=== PATIENT | female | born 1990 | race African-American/Black ===

== ENCOUNTER 2016-08-31 21:05 | Inpatient (IN) | payer OTHER ==
[~2016-08-31] VITALS: Ht 165.1 cm; Wt 65.3 kg
[2016-08-31 21:54] LABS: BASO % 0 % (0-3); EOS % 1 % (0-3); HEMATOCRIT 44.3 % (36.0-47.0); HEMOGLOBIN 14.6 g/dL (12.0-15.5); LYMPH # 2.7 x10^3/uL (1.0-4.8); LYMPH % 32 % (24-48); MEAN CORPUSCULAR HEMOGLOBIN 31 pg (25-35); MEAN CORPUSCULAR HGB CONC 33 g/dL (31-37); MEAN CORPUSCULAR VOLUME 93 fL (79-100); MONO % 8 % (0-9); NEUT % 59 % (31-73); PLATELET COUNT 171 x10^3/uL (140-400); RED BLOOD COUNT 4.77 x10^6/uL (3.50-5.40); RED CELL DISTRIBUTION WIDTH 14.1 % (11.5-14.5); WHITE BLOOD COUNT 8.6 x10^3/uL (4.0-11.0)
[2016-08-31 21:56] LABS: BILIRUBIN,URINE NEGATIVE (NEG); GLUCOSE,URINE NEGATIVE (NEG); NITRITE,URINE POSITIVE (NEG); PROTEIN,URINE NEGATIVE (NEG-TRACE)
[2016-08-31] MEDS ORDERED: FAMOTIDINE 20 MG/2 ML VIAL IVP ONE (22:00)
[2016-08-31] MEDS ORDERED: ONDANSETRON PF 4 MG/2 ML VIAL. IV ONE (22:00)
[2016-08-31] MEDS ORDERED: IV NORMAL SALINE 1000ML BAG 1,000 ML IV SCH (22:00)
[2016-08-31] MEDS ORDERED: MORPHINE SULFATE 2 MG/ML DISP.SYRIN. IV ONE (22:00)
[2016-08-31 22:02] LABS: BARBITURATES NEG (NEG); BENZODIAZEPINES NEG (NEG); CANNABINOIDS POS (NEG); COCAINE NEG (NEG); ETHANOL, URINE NEG (NEG); METHADONE NEG (NEG); OPIATES NEG (NEG); PHENCYCLIDINE NEG (NEG)
[2016-08-31 22:04] LABS: CALCIUM 8.9 mg/dL (8.5-10.1); CREATININE 0.9 mg/dL (0.6-1.0); GFR 90.2; POTASSIUM 3.6 mmol/L (3.5-5.1)
[2016-08-31 22:06] LABS: BACTERIA,URINE MANY /HPF (0-FEW); SQUAMOUS EPITHELIAL CELL,UR FEW /LPF; WBC,URINE 20-40 /HPF (0-4)
[2016-08-31 22:10] LABS: ALBUMIN 3.8 g/dL (3.4-5.0); ALBUMIN/GLOBULIN RATIO 0.9 (1.0-1.7); TOTAL BILIRUBIN 0.4 mg/dL (0.2-1.0); TOTAL PROTEIN 7.9 g/dL (6.4-8.2)
[2016-08-31 22:24] LABS: PLT ESTIMATE ADEQUATE (ADEQUATE)
--- NOTE | 2016-08-31 22:55 | PHYS DOC ---
Past Medical History Past Medical History: No Pertinent History Past Surgical History: No Surgical History Alcohol Use: Rarely Drug Use: Marijuana Adult General Chief Complaint Chief Complaint: ABDOMINAL PAIN HPI HPI Patient is a 26 year old female who presents with abdominal pain. Patient reports for the past 2 days she has had pain all over her abdomen that radiates to her back. This pain is worse on the left side. No clear inciting event. Patient reports else when she holds a pillow against her abdomen. Pain is accompanied by nausea and vomiting as well as loose stools. She has drank some orange juice as well as 7-Up with no improvement. No recent alcohol use. Review of Systems Review of Systems Constitutional: Denies fever or chills Eyes: Denies change in visual acuity or eye pain HENT: Denies nasal congestion or sore throat Respiratory: Denies cough or shortness of breath Cardiovascular: Denies chest pain GI: General abdominal pain, nausea, vomiting, diarrhea. Denies bloody stools or emesis : Denies dysuria or hematuria Musculoskeletal: Denies back pain or joint pain Integument: Denies rash or skin lesions Neurologic: Denies headache, focal weakness or sensory changes Current Medications Current Medications Current Medications Medications (Trade) Dose Ordered Sig/Ray Start Time Stop Time Status Last Admin Dose Admin Famotidine (Pepcid) 20 mg 1X ONCE 08/31/16 22:00 08/31/16 22:01 DC 08/31/16 21:58 20 MG Morphine Sulfate 2 mg 1X ONCE 08/31/16 22:00 08/31/16 22:01 DC 08/31/16 21:58 2 MG Ondansetron HCl (Zofran) 4 mg 1X ONCE 08/31/16 22:00 08/31/16 22:01 DC 08/31/16 21:58 4 MG Sodium Chloride (Iv Sodium Chloride 0.9% 1000ml Bag) 1,000 ml @ 1,000 mls/hr Q1H 08/31/16 22:00 08/31/16 22:59 DC 08/31/16 21:59 1,000 MLS/HR Allergies Allergies Allergies Coded Allergies Type Severity Reaction Last Updated Verified No Known Drug Allergies 12/31/15 No Physical Exam Physical Exam Constitutional: Well developed, well nourished, no acute distress, non-toxic appearance HENT: Normocephalic, atraumatic, bilateral external ears normal Eyes: EOMI, conjunctiva normal, no discharge Neck: Normal range of motion, no stridor Cardiovascular: Heart rate normal, regular rhythm, no murmur Lungs & Thorax: Bilateral breath sounds clear to auscultation Abdomen: Bowel sounds normal, soft, non-distended, LUQ/LLQ TTP without guarding or rebound Skin: Warm, dry, no erythema, no rash Extremities: No obvious deformity, no edema Neurologic: Alert and oriented X 3, no gross deficits noted Current Patient Data Vital Signs Vital Signs Date Time Temp Pulse Resp B/P Pulse Ox O2 Delivery O2 Flow Rate FiO2 08/31/16 22:30 78 98 Room Air 08/31/16 21:40 97.8 16 121/56 97.8 Lab Values Laboratory Tests Test 08/31/16 20:39 08/31/16 21:30 POC Urine HCG, Qualitative Hcg negative (Negative) White Blood Count 8.6x10^3/uL (4.0-11.0) Red Blood Count 4.77x10^6/uL (3.50-5.40) Hemoglobin 14.6g/dL (12.0-15.5) Hematocrit 44.3% (36.0-47.0) Mean Corpuscular Volume 93fL (79-100) Mean Corpuscular Hemoglobin 31pg (25-35) Mean Corpuscular Hemoglobin Concent 33g/dL (31-37) Red Cell Distribution Width 14.1% (11.5-14.5) Platelet Count 171x10^3/uL (140-400) Neutrophils (%) (Auto) 59% (31-73) Lymphocytes (%) (Auto) 32% (24-48) Monocytes (%) (Auto) 8% (0-9) Eosinophils (%) (Auto) 1% (0-3) Basophils (%) (Auto) 0% (0-3) Neutrophils # (Auto) 5.1x10^3uL (1.8-7.7) Lymphocytes # (Auto) 2.7x10^3/uL (1.0-4.8) Monocytes # (Auto) 0.7x10^3/uL (0.0-1.1) Eosinophils # (Auto) 0.1x10^3/uL (0.0-0.7) Basophils # (Auto) 0.0x10^3/uL (0.0-0.2) Platelet Estimate Adequate (ADEQUATE) Giant Platelets Occ Urine Collection Type Unknown Urine Color Yellow Urine Clarity Cloudy Urine pH 7.0 Urine Specific [place] 1.025 Urine Protein Negativemg/dL (NEG-TRACE) Urine Glucose (UA) Negativemg/dL (NEG) Urine Ketones (Stick) Negativemg/dL (NEG) Urine Blood Small (NEG) Urine Nitrite Positive (NEG) Urine Bilirubin Negative (NEG) Urine Urobilinogen Dipstick 1.0mg/dL (0.2 mg/dL) Urine Leukocyte Esterase Moderate (NEG) Urine RBC 11-20/HPF (0-2) Urine WBC 20-40/HPF (0-4) Urine Squamous Epithelial Cells Few/LPF Urine Bacteria Many/HPF (0-FEW) Urine Mucus Mod/LPF Sodium Level 140mmol/L (136-145) Potassium Level 3.6mmol/L (3.5-5.1) Chloride Level 103mmol/L (98-107) Carbon Dioxide Level 27mmol/L (21-32) Anion Gap 10 (6-14) Blood Urea Nitrogen 11mg/dL (7-20) Creatinine 0.9mg/dL (0.6-1.0) Estimated GFR (Cockcroft-Gault) 90.2 BUN/Creatinine Ratio 12 (6-20) Glucose Level 100mg/dL (70-99) H Calcium Level 8.9mg/dL (8.5-10.1) Total Bilirubin 0.4mg/dL (0.2-1.0) Aspartate Amino Transferase (AST) 19U/L (15-37) Alanine Aminotransferase (ALT) 17U/L (14-59) Alkaline Phosphatase 53U/L (46-116) Total Protein 7.9g/dL (6.4-8.2) Albumin 3.8g/dL (3.4-5.0) Albumin/Globulin Ratio 0.9 (1.0-1.7) L Lipase 606U/L (73-393) H Urine Opiates Screen Neg (NEG) Urine Methadone Screen Neg (NEG) Urine Barbiturates Neg (NEG) Urine Phencyclidine Screen Neg (NEG) Urine Amphetamine/Methamphetamine Neg (NEG) Urine Benzodiazepines Screen Neg (NEG) Urine Cocaine Screen Neg (NEG) Urine Cannabinoids Screen Pos (NEG) Urine Ethyl Alcohol Neg (NEG) Laboratory Tests 08/31/16 21:30 Laboratory Tests 08/31/16 21:30 EKG EKG [] Radiology/Procedures Radiology/Procedures RUQ US: IMPRESSION 1. Pancreas has unremarkable ultrasound appearance. 2. No evidence of cholelithiasis or cholecystitis. 3. Mildly echogenic, mildly enlarged liver, compatible with fatty liver disease. 4. The appearance of the kidneys is that of medullary nephrocalcinosis. Course & Med Decision Making Course & Med Decision Making Pertinent Labs and Imaging studies reviewed. (See chart for details) Patient is 18-year-old female presents with abdominal pain. Will check labs, UA to evaluate. IV fluids, pain medication, nausea medication, Pepcid, ordered for relief of symptoms. Labs notable for elevated lipase as well as apparent UTI. Rocephin ordered for antibiotic coverage. Patient denies recent alcohol use, right upper quadrant ultrasound was ordered to evaluate for other possible causes of pancreatitis. Imaging results as above. Discussed results with patient , who continues to have significant pain and nausea. Additional meds ordered. Discussed with Dr. Thibodeaux, will admit under his care for further evaluation and treatment. Dragon Disclaimer Dragon Disclaimer This electronic medical record was generated, in whole or in part, using a voice recognition dictation system. Departure Departure Impression: Primary Impression: Pancreatitis Disposition: ADMITTED INPATIENT Admitting Physician: Eulalio Thibodeaux Condition: STABLE Referrals: NO PCP (PCP) LEEANN SENIOR MD Aug 31, 2016 22:55
[2016-08-31] MEDS ORDERED: MORPHINE SULFATE 4 MG/ML DISP.SYRIN. IV ONE (23:00)
[2016-08-31] MEDS ORDERED: CEFTRIAXONE 1GM IVPB FOR OMNI 50 ML IV ONE (23:00)
[2016-08-31] MEDS ORDERED: ONDANSETRON PF 4 MG/2 ML VIAL. IV PRN (23:00)
[2016-08-31] MEDS ORDERED: ACETAMINOPHEN 325 MG TABLET. PO PRN (23:00)
--- NOTE | 2016-08-31 23:27 | ACF ---
Admission Forms Criteria PANCREATITIS Clinical Indications for Admission to Inpatient Care (Place 'X' for any and all applicable criteria): Admission is indicated for ANY ONE of the following (1)(2)(3)(4): [ ]I. Acute pancreatitis[A] as indicated by 2 or more of the following: [ ]a) Abdominal pain (eg, epigastric, left upper quadrant) [ ]b) Serum amylase or serum lipase greater than 3 times the upper limit of normal [ ]c) Characteristic findings from abdominal imaging (eg, pancreatic inflammation, pancreatic necrosis, peripancreatic fluid collection)[B] [ ]II. Pancreatitis (acute or chronic ) requiring inpatient care as indicated by 1 or more of the following : [ ]a) Inability to maintain oral hydration Hypoxemia [ ]b) Evidence of infection (eg, fever, peripancreatic abscess) [ ]c) Severe pain requiring acute inpatient management [ ]d) Hemodynamic instability [ ]e) Hypoxemia [ ]f) Acute renal failure [ ]g) Severe electrolyte abnormalities Extended stay beyond goal length of stay may be needed for (1)(11) [ ]a) Severe acute pancreatitis (10)(19) [ ]b) Persistent symptoms, ascites, or pleural effusion [ ]c) Abdominal compartment syndrome (10) [ ]d) Late complications [ ]e) Acute renal failure (27) [ ]f) Gallstones in gallbladder The original [employer] content created by [employer] has been revised. The portions of the content which have been revised are identified through the use of italic text or in bold,and [employer] has neither reviewed nor approved the modified material.All other unmodified content is copyright [employer]. Please see references footnoted in the original [employer] edition 2016 NELL TERESA Aug 31, 2016 23:27
[2016-08-31] MEDS ORDERED: SUCR500T PO (23:32)
[2016-08-31] MEDS ORDERED: INSU100C SQ (23:32)
[2016-08-31] MEDS ORDERED: FOLI1CAP10 PO (23:32)
[2016-08-31] MEDS ORDERED: TOLT4CAP12 PO (23:32)
[2016-08-31] MEDS ORDERED: SITA50TA PO (23:32)
[2016-08-31] MEDS ORDERED: SEVE800T9 PO (23:32)
--- NOTE | 2016-08-31 23:58 | RAD ---
PROCEDURE Right upper quadrant abdominal ultrasound. HISTORY Pancreatitis. Abdominal pain for 2 days. TECHNIQUE Transabdominal imaging was performed. COMPARISON None. FINDINGS Visualized pancreas is grossly unremarkable. No convincing peripancreatic fluid is identified, although ultrasound is not most sensitive modality. Visualized aorta and IVC demonstrate normal caliber. Liver appears mildly increased in echogenicity. No focal hepatic masses are identified. Right hepatic lobe measures 16.6 centimeters in length, mildly enlarged. Gallbladder is without stone or inflammation. Common bile duct has normal caliber of 4 millimeters. Right kidney measures 10.8 centimeters in length. No obstruction is seen. There is increased echogenicity of the right renal pyramids. Left kidney also demonstrates increased echogenicity of the renal pyramids. This finding is compatible with medullary nephrocalcinosis. IMPRESSION 1. Pancreas has unremarkable ultrasound appearance. 2. No evidence of cholelithiasis or cholecystitis. 3. Mildly echogenic, mildly enlarged liver, compatible with fatty liver disease. 4. The appearance of the kidneys is that of medullary nephrocalcinosis. Electronically signed by: August Mcnamara MD (Aug 31, 2016 23:57:41)
[2016-09-01] VITALS (7 sets, daily range): BP systolic 94–111; BP diastolic 39–67
--- NOTE | 2016-09-01 01:52 | ACF ---
Admission Forms Criteria ABDOMINAL PAIN Clinical Indications for Admission to Inpatient Care (Place 'X' for any and all applicable criteria): Admission is indicated for ANY ONE of the following(1)(2)(3)(4)(5): [X]I. Inpatient admission required rather than observation care (Also use Abdominal Pain: Observation Care, as appropriate) because of ANY ONE of the following: [X]a) Severe pain requiring acute inpatient management [ ]b) Identification of etiology/finding that requires inpatient care (eg, aortic dissection, free air) [ ]c) Absent bowel sounds with complete ileus(6) [ ]d) Suspected toxic megacolon [ ]e) Severe electrolyte abnormalities requiring inpatient care [ ]f) High fever or infection requiring inpatient admission as indicated by ANY ONE of following(7)(8): [ ] i) Appropriate outpatient or observational care antimicrobial treatment unavailable, not effective, or not feasible [ ] ii) Documented bacteremia [ ] iii) Temperature > 104.9 degrees F (oral) [ ] iv) T >103.1 F (oral) or < 96.8 F(rectal) that does not respond to all emergency treatment measures [ ]g) Signs of intestinal obstruction [B] [ ]h) Hemodynamic instability [ ]i) IV fluid to replace significant ongoing losses (greater than 3 L/m2 per day) (12)(13) [ ]j) Percutaneous or open drainage (eg, abscess, biliary tract ) procedures [ ]k) Parenteral nutrition regimen that must be implemented on inpatient basis [ ]l) Other condition,treatment or monitoring requiring inpatient admission. [ ]II. Peritoneal signs present [ ]III. Surgery needed that cannot be performed on an ambulatory basis. [ ]IV. Evaluation requires patient to not eat or drink for extended period ( eg, more than 24 hours). [ ]V. Contraindications and/or Inappropriate clinical situations for Observational Care in patients with abdominal pain, when ANY ONE of the following is required: [ ]a) Thorough evaluation is required to prevent catastrophic events due to delays in diagnosing (e.g.Mesenteric ischemia) 1,3 [ ]b) Patient with severe pathology or with chronic symptoms unlikely to improve in the ED stay (3) [ ]. General contraindications and/or Inappropriate clinical situations for Observational Care in patients with abdominal pain, when ANY ONE of the following is required: [ ]a) Prediction of prolongation of LOS based on ANY ONE of the following may be considered as a contraindication for observational care 2, 3, 4, 5, 6, 7, 8, 9, 10, 11 [ ]i) Age > 65 yrs. [ ]ii) Patient arriving by ambulance [ ]iii) Patient with high acuity [ ]iv) Patient requiring vital sign monitoring [ ]v) Patient on IV medication [ ]b) Systolic blood pressures 180mmHg 3,12 [ ]c) Patient with altered mental status including delirium and other alteration of consciousness, (3) [ ]d) Patient whose discharge disposition will be to a custodial home or rehabilitation home should not be managed in Emergency Department Observation Unit. CMS rule requires 3 days hospital stay before such placement.3,13 [ ]e) Patient with failure to thrive due to broad array of etiologies 3,16,17 [ ]f) Inability to ambulate 3,14 Extended stay beyond goal length of stay may be needed for(2)(3): [ ]a) Persistent abdominal pain with suspected intra-abdominal process [ ]b) Diagnosed condition requiring continued stay (e.g., pancreatitis, complicated diverticulitis) [ ]c) Surgery (e.g., colectomy) The original [facility] content created by [employer] has been revised. The portions of the content which have been revised are identified through the use of italic text or in bold, and [facility] has neither reviewed nor approved the modified material.All other unmodified content is copyright [employer]. Please see references footnoted in the original [facility] [facility] edition 2016 Admission Criteria Met?: Yes NELL TERESA Sep 01, 2016 01:52
[2016-09-01] MEDS: MORPHINE SULFATE 4 MG/ML DISP.SYRIN. IV PRN ×3 (02:31→09:06)
[2016-09-01] MEDS: IV NORMAL SALINE 1000ML BAG 1,000 ML IV SCH ×4 (02:31→17:18)
[2016-09-01 04:31] LABS: BASO % 0 % (0-3); EOS % 1 % (0-3); HEMOGLOBIN 11.8 g/dL (12.0-15.5); LYMPH # 2.8 x10^3/uL (1.0-4.8); LYMPH % 44 % (24-48); MEAN CORPUSCULAR HEMOGLOBIN 31 pg (25-35); MEAN CORPUSCULAR HGB CONC 33 g/dL (31-37); MEAN CORPUSCULAR VOLUME 94 fL (79-100); MONO % 10 % (0-9); NEUT % 44 % (31-73); PLATELET COUNT 130 x10^3/uL (140-400); RED BLOOD COUNT 3.84 x10^6/uL (3.50-5.40); WHITE BLOOD COUNT 6.5 x10^3/uL (4.0-11.0)
[2016-09-01 04:44] LABS: CALCIUM 8.1 mg/dL (8.5-10.1); CREATININE 0.7 mg/dL (0.6-1.0); GFR 120.6; POTASSIUM 3.5 mmol/L (3.5-5.1)
[2016-09-01] MEDS ORDERED: MORPHINE SULFATE 4 MG/ML DISP.SYRIN. IV PRN (11:18)
[2016-09-01] MEDS: MORPHINE SULFATE 2 MG/ML DISP.SYRIN. IV PRN (16:01)
--- NOTE | 2016-09-01 21:47 | HP ---
ADMIT DATE: 09/01/2016 CHIEF COMPLAINT: Abdominal pain. HISTORY OF PRESENT ILLNESS: The patient is a 26-year-old -[place]ames[place] woman who presents with a 2-day history of abdominal pain all over radiating into her back. The pain left is on the left side. Nothing seems to be helping or worsening. She denies any diarrhea, any nausea or vomiting. She denies any unusual food intake. She denies any sick contacts. She is admitted for intractable pain. PAST MEDICAL HISTORY: None. PAST SURGICAL HISTORY: None. FAMILY HISTORY: None to her knowledge. SOCIAL HISTORY: Denies any smoking, use alcohol rarely, admits to cannabis. ALLERGIES: No known drug allergies. MEDICATIONS: No prescription meds at home. No [id number] meds. REVIEW OF SYSTEMS: Pain in her abdomen as above. Rest of organ system review is negative. PHYSICAL EXAMINATION: VITAL SIGNS: Today show a blood pressure of 103/65, heart rate of 63, respiratory rate is 18. She is afebrile. GENERAL: This is a well-nourished 26-year-old -[place] woman, awake, alert, in no acute distress. HEENT: Shows no scleral icterus. NECK: Supple. LUNGS: Fairly clear. CARDIOVASCULAR: Heart is regular rate and rhythm. ABDOMEN: Soft, tenderness to palpation, moderate on the left and mild on the right. EXTREMITIES: Show no edema, no clubbing, no cyanosis. SKIN: Warm, soft and dry. LABORATORY DATA: CBC with a WBC of 6.5, hemoglobin 11.8, platelets of 130. Chemistries with a BUN and creatinine of 8 and 0.7. Electrolytes within normal, calcium at 8.1. LFTs within normal, lipase at 606. Urine obtained in the Emergency Room showed 20-40 wbc and many bacteria. IMAGING STUDIES: Ultrasound of the abdomen showed unremarkable pancreas. No evidence of cholelithiasis or cholecystitis, mildly enlarged liver compatible with fatty liver disease. Kidneys, the appearance of the kidneys is that of medullary nephrocalcinosis. ASSESSMENT AND PLAN: The patient is a 26-year-old -[place] woman admitted with pancreatitis, unclear etiology as well as UTI. As she is still symptomatic with p.o. intake, we will make her n.p.o., IV fluids are running. Monitor her lipase and LFTs as well as CBC. For her UTI, she will be started on ceftriaxone. We will await microbiology report to limit antibiotic spectrum. For pain control, she will be given morphine p.r.n. IV. Prophylaxis will be instituted with PPI IV but she did receive Pepcid in the ER last night. LEVY ARAUJO MD DR: DIONICIO/nts JOB#: [id number] / [id number] LUC
[2016-09-02] MEDS: IV NORMAL SALINE 1000ML BAG 1,000 ML IV SCH ×4 (00:38→22:15)
[2016-09-02] MEDS: MORPHINE SULFATE 2 MG/ML DISP.SYRIN. IV PRN (02:30)
[2016-09-02 03:59] VITALS: BP 100/46
[2016-09-02 05:55] LABS: BASO % 1 % (0-3); EOS % 1 % (0-3); HEMATOCRIT 34.2 % (36.0-47.0); HEMOGLOBIN 11.1 g/dL (12.0-15.5); LYMPH # 2.5 x10^3/uL (1.0-4.8); LYMPH % 51 % (24-48); MEAN CORPUSCULAR HEMOGLOBIN 30 pg (25-35); MEAN CORPUSCULAR HGB CONC 32 g/dL (31-37); MEAN CORPUSCULAR VOLUME 93 fL (79-100); MONO % 10 % (0-9); NEUT % 38 % (31-73); PLATELET COUNT 116 x10^3/uL (140-400); RED BLOOD COUNT 3.66 x10^6/uL (3.50-5.40); RED CELL DISTRIBUTION WIDTH 14.1 % (11.5-14.5)
[2016-09-02 06:23] LABS: ALBUMIN 2.7 g/dL (3.4-5.0); ALBUMIN/GLOBULIN RATIO 0.9 (1.0-1.7); CALCIUM 8.1 mg/dL (8.5-10.1); CREATININE 0.7 mg/dL (0.6-1.0); GFR 120.6; POTASSIUM 3.8 mmol/L (3.5-5.1); TOTAL BILIRUBIN 0.4 mg/dL (0.2-1.0); TOTAL PROTEIN 5.6 g/dL (6.4-8.2)
[2016-09-02 07:00] VITALS: BP 112/65
[2016-09-02] MEDS ORDERED: PANTOPRAZOLE IV PUSH 40 MG VIAL. IVP SCH (07:30)
[2016-09-02 11:00] VITALS: BP 106/53
--- NOTE | 2016-09-02 13:29 | PDOC ---
PROGRESS NOTES Chief Complaint Chief Complaint Pancreatitis UTI ASSESSMENT AND PLAN: 1. pancreatitis: symptomatically recovered, but lipase levels essent unchanged. cautiously start clear liquid diet, advance as daniel 2. UTI: GNR in prelim cult. on empiric ceftriax 3. Dispo: if clinically stable and tolerating PO, poss d/c in AM Vitals Vitals Vital Signs Date Time Temp Pulse Resp B/P Pulse Ox O2 Delivery O2 Flow Rate FiO2 09/02/16 11:00 97.7 62 18 106/53 100 Room Air 97.7 Physical Exam General: Alert, Oriented X3, Cooperative Heart: Regular rate Lungs: Clear Abdomen: Normal bowel sounds, Soft, No tenderness Extremities: No edema Skin: No rashes Labs LABS Laboratory Tests Test 09/02/16 05:20 White Blood Count 5.0x10^3/uL (4.0-11.0) Red Blood Count 3.66x10^6/uL (3.50-5.40) Hemoglobin 11.1g/dL (12.0-15.5) Hematocrit 34.2% (36.0-47.0) Mean Corpuscular Volume 93fL (79-100) Mean Corpuscular Hemoglobin 30pg (25-35) Mean Corpuscular Hemoglobin Concent 32g/dL (31-37) Red Cell Distribution Width 14.1% (11.5-14.5) Platelet Count 116x10^3/uL (140-400) Neutrophils (%) (Auto) 38% (31-73) Lymphocytes (%) (Auto) 51% (24-48) Monocytes (%) (Auto) 10% (0-9) Eosinophils (%) (Auto) 1% (0-3) Basophils (%) (Auto) 1% (0-3) Neutrophils # (Auto) 1.9x10^3uL (1.8-7.7) Lymphocytes # (Auto) 2.5x10^3/uL (1.0-4.8) Monocytes # (Auto) 0.5x10^3/uL (0.0-1.1) Eosinophils # (Auto) 0.1x10^3/uL (0.0-0.7) Basophils # (Auto) 0.0x10^3/uL (0.0-0.2) Sodium Level 141mmol/L (136-145) Potassium Level 3.8mmol/L (3.5-5.1) Chloride Level 111mmol/L (98-107) Carbon Dioxide Level 24mmol/L (21-32) Anion Gap 6 (6-14) Blood Urea Nitrogen 6mg/dL (7-20) Creatinine 0.7mg/dL (0.6-1.0) Estimated GFR (Cockcroft-Gault) 120.6 BUN/Creatinine Ratio 9 (6-20) Glucose Level 101mg/dL (70-99) Calcium Level 8.1mg/dL (8.5-10.1) Total Bilirubin 0.4mg/dL (0.2-1.0) Aspartate Amino Transf (AST/SGOT) 28U/L (15-37) Alanine Aminotransferase (ALT/SGPT) 23U/L (14-59) Alkaline Phosphatase 40U/L (46-116) Lactate Dehydrogenase 146U/L (81-234) Total Protein 5.6g/dL (6.4-8.2) Albumin 2.7g/dL (3.4-5.0) Albumin/Globulin Ratio 0.9 (1.0-1.7) Lipase 580U/L (73-393) Review of Systems Review of Systems ash sarah abd pain, no N/V Comment Review of Relevant LEVY ARAUJO MD Sep 02, 2016 13:29
[2016-09-02 14:53] VITALS: BP 111/60
[2016-09-02] MEDS ORDERED: CEFTRIAXONE SODIUM 1 GM in IV NORMAL SALINE 50ML 50 ML IV SCH (15:00)
[2016-09-02 19:00] VITALS: BP 100/58
[2016-09-02 23:11] VITALS: BP 93/52
[2016-09-03 02:33] VITALS: BP 109/63
[2016-09-03] MEDS: IV NORMAL SALINE 1000ML BAG 1,000 ML IV SCH (04:04)
[2016-09-03] MEDS ORDERED: PANTOPRAZOLE 40 MG TABLET.DR. PO SCH (07:30)
[2016-09-03 07:39] VITALS: BP 114/69
[2016-09-03 10:04] VITALS: BP 106/70
[2016-09-03] MEDS ORDERED: TRAM50TA PO (12:53)
[2016-09-03] MEDS ORDERED: FAMO-63 PO (12:53)
[2016-09-03] MEDS ORDERED: TRAMADOL 50 MG TABLET. PO PRN (13:00)
[2016-09-03] MEDS ORDERED: CIPR250T30 PO (13:04)
--- NOTE | 2016-09-03 13:07 | PDOC3 ---
Discharge Summary Visit Information Date of Admission: Aug 31, 2016 Date of Discharge: Sep 03, 2016 Admitting Diagnosis: pancreattiis Final Diagnosis UTI abd pain Problems Medical Problems: (1) Pancreatitis Status: Acute Brief Hospital Course Allergies Allergies Coded Allergies Type Severity Reaction Last Updated Verified No Known Drug Allergies 12/31/15 No Vital Signs Vital Signs Date Time Temp Pulse Resp B/P Pulse Ox O2 Delivery O2 Flow Rate FiO2 09/03/16 10:04 97.8 87 18 106/70 96 Room Air 97.8 Lab Results Laboratory Tests Test 09/02/16 05:20 White Blood Count 5.0x10^3/uL (4.0-11.0) Red Blood Count 3.66x10^6/uL (3.50-5.40) Hemoglobin 11.1g/dL (12.0-15.5) Hematocrit 34.2% (36.0-47.0) Mean Corpuscular Volume 93fL (79-100) Mean Corpuscular Hemoglobin 30pg (25-35) Mean Corpuscular Hemoglobin Concent 32g/dL (31-37) Red Cell Distribution Width 14.1% (11.5-14.5) Platelet Count 116x10^3/uL (140-400) Neutrophils (%) (Auto) 38% (31-73) Lymphocytes (%) (Auto) 51% (24-48) Monocytes (%) (Auto) 10% (0-9) Eosinophils (%) (Auto) 1% (0-3) Basophils (%) (Auto) 1% (0-3) Neutrophils # (Auto) 1.9x10^3uL (1.8-7.7) Lymphocytes # (Auto) 2.5x10^3/uL (1.0-4.8) Monocytes # (Auto) 0.5x10^3/uL (0.0-1.1) Eosinophils # (Auto) 0.1x10^3/uL (0.0-0.7) Basophils # (Auto) 0.0x10^3/uL (0.0-0.2) Sodium Level 141mmol/L (136-145) Potassium Level 3.8mmol/L (3.5-5.1) Chloride Level 111mmol/L (98-107) Carbon Dioxide Level 24mmol/L (21-32) Anion Gap 6 (6-14) Blood Urea Nitrogen 6mg/dL (7-20) Creatinine 0.7mg/dL (0.6-1.0) Estimated GFR (Cockcroft-Gault) 120.6 BUN/Creatinine Ratio 9 (6-20) Glucose Level 101mg/dL (70-99) Calcium Level 8.1mg/dL (8.5-10.1) Total Bilirubin 0.4mg/dL (0.2-1.0) Aspartate Amino Transf (AST/SGOT) 28U/L (15-37) Alanine Aminotransferase (ALT/SGPT) 23U/L (14-59) Alkaline Phosphatase 40U/L (46-116) Lactate Dehydrogenase 146U/L (81-234) Total Protein 5.6g/dL (6.4-8.2) Albumin 2.7g/dL (3.4-5.0) Albumin/Globulin Ratio 0.9 (1.0-1.7) Lipase 580U/L (73-393) Brief Hospital Course Ms. Espinoza is a 26 old admit with abd pain ABD US OK, some calcium visualized on renal, no stones, pain better at DC ate regular diet without pain for discharge Discharge Information Condition at Discharge: Improved Follow Up: Weeks Disposition/Orders: D/C to Home Scheduled PRN Tramadol Hcl (Tramadol Hcl) 50 MG PO PRN Q6HRS PRN PRN PAIN Patient Instructions Patient Instructions time .> 30 min 2 visisits cont cipro imaging of calcium of medullary kidney reviewed with renal team and discussed with patient need OP f/u YUVAL MUNOZ MD Sep 03, 2016 13:07
== END 2016-09-03 14:30 | disposition home or self-care (01) | DRG 439 ==
LOC: ER 21:05 → 5 SOUTH 22:54
PROVIDERS: ADMIT Internal Medicine; ATTEND Internal Medicine
DX: K85.90 Acute pancreatitis without necrosis or infection, unspecified (principal); N39.0 Urinary tract infection, site not specified; K76.0 Fatty (change of) liver, not elsewhere classified
CPT/HCPCS: 36415; 76705; 80048; 80053; 81001; 81025; 83615; 83690; 85007; 85027; 87086; 87186; 96374; 96375; C9113; G0481; J0690; J0696; J2270; J2405; J7030; S0028; 99285-25

== ENCOUNTER 2016-12-17 21:43 | Emergency (ER) | payer OTHER ==
[~2016-12-17] VITALS: Ht 165.1 cm; Wt 63.5 kg
[~2016-12-17 21:43] MED LIST: CIPR250T30 PO; FAMO-63 PO; FOLI1CAP10 PO; INSU100C SQ; SEVE800T9 PO; SITA50TA PO; SUCR500T PO; TOLT4CAP12 PO; TRAM50TA PO
[2016-12-17 21:50] VITALS: BP 103/51
--- NOTE | 2016-12-17 22:17 | PHYS DOC ---
Past Medical History Past Medical History: No Pertinent History Past Surgical History: No Surgical History Alcohol Use: Rarely Drug Use: Marijuana Adult General Chief Complaint Chief Complaint: ANKLE PROBLEM HPI HPI Patient is a 26 year old female who presents today with left lateral ankle pain that began today after she rolled her ankle while walking. Patient denies falling. She states she is 11 weeks . Patient has no related complaints. Review of Systems Review of Systems Constitutional: Denies fever or chills [] Eyes: Denies change in visual acuity, redness, or eye pain [] GI: Denies abdominal pain, nausea, vomiting, bloody stools or diarrhea [] : Denies dysuria or hematuria [] Musculoskeletal: left lateral ankle pain Integument: Denies rash or skin lesions [] Neurologic: Denies headache, focal weakness or sensory changes [] Endocrine: Denies polyuria or polydipsia [] Allergies Allergies Allergies Coded Allergies Type Severity Reaction Last Updated Verified No Known Drug Allergies 12/31/15 No Physical Exam Physical Exam Constitutional: Well developed, well nourished, no acute distress, non-toxic appearance. [] Abdomen: Bowel sounds normal, soft, no tenderness, no masses, no pulsatile masses. [] Skin: Warm, dry, no erythema, no rash. [] Back: No tenderness, no CVA tenderness. [] Extremities: No tenderness, no cyanosis, no clubbing, ROM intact, no left ankle with no obvious deformity. No obvious edema or ecchymosis. Tenderness on palpation of the left lateral ankle. Full range of motion to the left ankle and foot. +2 left pedal pulse. Cap refill less than 2 seconds and left toes. Sensation intact to the left lower extremity. Neurologic: Alert and oriented X 3, normal motor function, normal sensory function, no focal deficits noted. [] Psychologic: Affect normal, judgement normal, mood normal. [] EKG EKG [] Radiology/Procedures Radiology/Procedures [] Course & Med Decision Making Course & Med Decision Making Pertinent Labs and Imaging studies reviewed. (See chart for details) This is an 11 week female patient who presents today with left ankle pain after rolling it. I talked to patient about risks of doing x-rays especially at 11 weeks . Patient and significant other/ male partner did not want the x-rays because of the dangers on the baby. Air cast was applied to the left ankle by the mobile sales technician, neurovascular exam done by me is normal, cap refill less than 2 seconds. Ice elevation encouraged. Crutches provided. Tylenol for pain. Follow-up with orthopedic doctor in one week. Carmen Disclaimer Carmen Disclaimer This electronic medical record was generated, in whole or in part, using a voice recognition dictation system. Departure Departure Impression: Primary Impression: Left ankle sprain Disposition: HOME, SELF-CARE Condition: STABLE Referrals: NO PCP (PCP) BALDOMERO PATEL MD Follow-up in one to 2 weeks Patient Instructions: Ankle Sprain Additional Instructions: You were seen for left ankle sprain. Ice and elevate the extremity. Take Tylenol as needed for pain. Follow-up with an orthopedic doctor provided in 1-2 weeks if pain continues. Problem Qualifiers Primary Impression: Left ankle sprain Encounter type: initial encounter Involved ligament of ankle: unspecified ligament Qualified Codes: S93.402A - Sprain of unspecified ligament of left ankle, initial encounter [facility] Dec 17, 2016 22:16
[2016-12-17] MEDS ORDERED: ACETAMINOPHEN 325 MG TABLET. PO ONE (22:45)
== END 2016-12-17 22:28 | disposition home or self-care (01) ==
LOC: ER 21:43
DX: O26.891 Other specified pregnancy related conditions, first trimester (principal); S93.402A Sprain of unspecified ligament of left ankle, initial encounter; O99.321 Drug use complicating pregnancy, first trimester; F14.10 Cocaine abuse, uncomplicated; Z3A.11 11 weeks gestation of pregnancy; X58.XXXA Exposure to other specified factors, initial encounter; Y93.01 Activity, walking, marching and hiking; Y92.89 Other specified places as the place of occurrence of the external cause; Y99.8 Other external cause status
CPT/HCPCS: 99282; L4350; 99284-25

== ENCOUNTER 2016-12-21 21:22 | Emergency (ER) | payer OTHER ==
[~2016-12-21] VITALS: Ht 167.6 cm; Wt 64.0 kg
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
[2016-12-21 22:25] LABS: BILIRUBIN,URINE NEGATIVE (NEG); GLUCOSE,URINE NEGATIVE (NEG); NITRITE,URINE NEGATIVE (NEG); PROTEIN,URINE NEGATIVE (NEG-TRACE)
[2016-12-21 22:40] LABS: BACTERIA,URINE FEW /HPF (0-FEW); RBC,URINE 0 /HPF (0-2); SQUAMOUS EPITHELIAL CELL,UR FEW /LPF
--- NOTE | 2016-12-21 22:47 | RAD ---
Exam performed: OB sonogram first semester. HISTORY: Abdominal pain and spotting ultrasound. DATE OF SERVICE: 12/21/2016.COMPARISON: None available TECHNIQUE: Transabdominal. FINDINGS: Single live intrauterine fetus is seen in variable presentation. The CRL measures 5.8 cm corresponding to 12 weeks and 2 days with an EDC of 07/03/2017. Maturity by LMP of 09/23/2016 is 12 weeks and 5 days with an EDC of 06/30/2017. heart rate measures 1 65 bpm. Placenta is developing anteriorly. Bilateral ovaries appear normal. No free fluid The cervix is closed and measures 4.03 cm. IMPRESSION: Single live intrauterine fetus of maturity 12 weeks and 2 days with a heart rate of 1 65 bpm. Electronically signed by: Rosa Isela Boyer MD (12/21/2016 10:44 PM) [facility]
[2016-12-21 23:09] LABS: BASO % 1 % (0-3); EOS % 1 % (0-3); HEMATOCRIT 31.2 % (36.0-47.0); HEMOGLOBIN 10.5 g/dL (12.0-15.5); LYMPH # 2.7 x10^3/uL (1.0-4.8); LYMPH % 34 % (24-48); MEAN CORPUSCULAR HEMOGLOBIN 32 pg (25-35); MEAN CORPUSCULAR HGB CONC 34 g/dL (31-37); MEAN CORPUSCULAR VOLUME 95 fL (79-100); MONO % 8 % (0-9); NEUT % 56 % (31-73); PLATELET COUNT 173 x10^3/uL (140-400); RED BLOOD COUNT 3.31 x10^6/uL (3.50-5.40); RED CELL DISTRIBUTION WIDTH 13.6 % (11.5-14.5)
[2016-12-21 23:10] LABS: CALCIUM 7.9 mg/dL (8.5-10.1); CREATININE 0.6 mg/dL (0.6-1.0); POTASSIUM 3.5 mmol/L (3.5-5.1)
[2016-12-21 23:20] LABS: INR 1.1 (0.8-1.1); PROTHROMBIN TIME PATIENT 13.2 SEC (11.7-14.0)
[2016-12-22] MEDS ORDERED: NITR100C PO (00:32)
[2016-12-22] MEDS ORDERED: MICO100S VG (00:32)
[2016-12-22 00:45] VITALS: BP 120/59
== END 2016-12-22 00:45 | disposition home or self-care (01) ==
LOC: ER 21:22
DX: O23.41 Unspecified infection of urinary tract in pregnancy, first trimester (principal); O98.811 Other maternal infectious and parasitic diseases complicating pregnancy, first trimester; O99.321 Drug use complicating pregnancy, first trimester; F12.10 Cannabis abuse, uncomplicated; Z3A.12 12 weeks gestation of pregnancy
CPT/HCPCS: 36415; 76801; 80048; 81001; 81025; 85027; 85460; 85610; 85730; 86900; 86901; 87086; 87491; 87591; 99285; Q0111

== ENCOUNTER 2017-01-26 21:18 | Emergency (ER) | payer OTHER ==
[~2017-01-26] VITALS: Ht 165.1 cm; Wt 64.9 kg
[~2017-01-26 21:18] MED LIST changes: +MICO100S VG; +NITR100C PO
--- NOTE | 2017-01-26 21:34 | PHYS DOC ---
Past Medical History Past Medical History: No Pertinent History Past Surgical History: No Surgical History Alcohol Use: None Drug Use: Marijuana Adult General Chief Complaint Chief Complaint: ABDOMINAL PAIN IN HPI HPI Patient is a 26 year old female who presents with 3 days of intermittent pelvic pain no vaginal bleeding no heavy discharge. Patient's a LMP October with a prior ultrasound which puts her dates at 17 weeks and 6 in 7 days Review of Systems Review of Systems Constitutional: Denies fever or chills [] Eyes: Denies change in visual acuity, redness, or eye pain [] HENT: Denies nasal congestion or sore throat [] Respiratory: Denies cough or shortness of breath [] Cardiovascular: No additional information not addressed in HPI [] GI: Denies abdominal pain, nausea, vomiting, bloody stools or diarrhea [] : Denies dysuria or hematuria [] Musculoskeletal: Denies back pain or joint pain [] Integument: Denies rash or skin lesions [] Neurologic: Denies headache, focal weakness or sensory changes [] Endocrine: Denies polyuria or polydipsia [] Allergies Allergies Allergies Coded Allergies Type Severity Reaction Last Updated Verified No Known Drug Allergies 12/31/15 No Physical Exam Physical Exam Constitutional: Well developed, well nourished, no acute distress, non-toxic appearance. [] HENT: Normocephalic, atraumatic, bilateral external ears normal, oropharynx moist, no oral exudates, nose normal. [] Eyes: PERRLA, EOMI, conjunctiva normal, no discharge. [] Neck: Normal range of motion, no tenderness, supple, no stridor. [] Cardiovascular:Heart rate regular rhythm, no murmur [] Lungs & Thorax: Bilateral breath sounds clear to auscultation [] Abdomen: Bowel sounds normal, soft, no tenderness, no masses, no pulsatile masses. Minimal tenderness in the suprapubic [] Skin: Warm, dry, no erythema, no rash. [] Back: No tenderness, no CVA tenderness. [] Extremities: No tenderness, no cyanosis, no clubbing, ROM intact, no edema. [] Neurologic: Alert and oriented X 3, normal motor function, normal sensory function, no focal deficits noted. [] Psychologic: Affect normal, judgement normal, mood normal. [ Pelvic exam: External exam was normal with no lesions speculum exam showed no vaginal bleeding or discharge with a closed cervix bimanual exam was consistent with a 17-18 week gestational age .] Current Patient Data Vital Signs Vital Signs Date Time Temp Pulse Resp B/P (MAP) Pulse Ox O2 Delivery O2 Flow Rate FiO2 01/26/17 21:20 98.3 66 16 114/53 (73) 100 Room Air 98.3 Lab Values Laboratory Tests Test 01/26/17 21:30 Urine Collection Type Unknown Urine Color Yellow Urine Clarity Turbid Urine pH 7.5 Urine Specific [place] 1.010 Urine Protein Negative mg/dL (NEG-TRACE) Urine Glucose (UA) Negative mg/dL (NEG) Urine Ketones (Stick) Negative mg/dL (NEG) Urine Blood Negative (NEG) Urine Nitrite Negative (NEG) Urine Bilirubin Negative (NEG) Urine Urobilinogen Dipstick 0.2 mg/dL (0.2 mg/dL) Urine Leukocyte Esterase Trace (NEG) Urine RBC 1-2 /HPF (0-2) Urine WBC Occ /HPF (0-4) Urine Squamous Epithelial Cells Few /LPF Urine Amorphous Sediment Present /HPF Urine Bacteria 0 /HPF (0-FEW) Urine Mucus Slight /LPF EKG EKG [] Radiology/Procedures Radiology/Procedures [] Course & Med Decision Making Course & Med Decision Making Pertinent Labs and Imaging studies reviewed. (See chart for details) heart tones 150s and urine looks clean. Pelvic cultures are pending at time of dismissal. [] Dragon Disclaimer Dragon Disclaimer This electronic medical record was generated, in whole or in part, using a voice recognition dictation system. Departure Departure Impression: Primary Impression: Pelvic pain during Additional Impression: Round ligament pain Disposition: 01 HOME, SELF-CARE Condition: IMPROVED Referrals: NO PCP (PCP) Patient Instructions: Abdominal Pain During , [id number] Problem Qualifiers BERNADINE PITTS MD Jan 26, 2017 21:34
[2017-01-26 21:37] LABS: BILIRUBIN,URINE NEGATIVE (NEG); GLUCOSE,URINE NEGATIVE (NEG); NITRITE,URINE NEGATIVE (NEG); PH,URINE 7.5; PROTEIN,URINE NEGATIVE (NEG-TRACE); UROBILINOGEN,URINE 0.2 mg/dL (0.2 mg/dL)
[2017-01-26 21:43] LABS: BACTERIA,URINE 0 /HPF (0-FEW); SQUAMOUS EPITHELIAL CELL,UR FEW /LPF; WBC,URINE OCC /HPF (0-4)
[2017-01-26 22:11] VITALS: BP 114/53
== END 2017-01-26 22:11 | disposition home or self-care (01) ==
LOC: ER 21:18
DX: O26.892 Other specified pregnancy related conditions, second trimester (principal); R10.2 Pelvic and perineal pain; R10.30 Lower abdominal pain, unspecified
CPT/HCPCS: 81001; 87086; 87491; 87591; 99284

== ENCOUNTER 2020-08-19 20:00 | Emergency (ER) | payer OTHER ==
[~2020-08-19] VITALS: Ht 165.1 cm; Wt 78.2 kg
[2020-08-19] MEDS ORDERED: HYDROcodone/APAP 7.5/325MG 1 TAB TABLET PO ONE (20:30)
--- NOTE | 2020-08-19 21:28 | RAD ---
EXAM: AP and lateral views right tibia/fibula AP, oblique and lateral views of the right ankle AP, oblique and lateral views right foot DATE: 08/19/2020 9:04 PM INDICATION: Reason: Right lower extremity pain after a fall last night / Spl. Instructions: / Histor y: COMPARISON: No Prior FINDINGS: No evidence of acute fracture or dislocation. Joint spaces are preserved without significant degenera tive/proliferative change. Ankle mortise is congruent. Talar dome is intact. Mild forefoot soft tissu e swelling. IMPRESSION: No evidence of acute fracture or dislocation. Electronically signed by: Jose Ray MD (08/19/2020 9:26 PM) [facility]
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
[2020-08-19 22:00] VITALS: BP 121/56
== END 2020-08-19 22:06 | disposition home or self-care (01) ==
LOC: ER 20:00
DX: M25.571 Pain in right ankle and joints of right foot (principal); M79.671 Pain in right foot; F17.200 Nicotine dependence, unspecified, uncomplicated; F12.90 Cannabis use, unspecified, uncomplicated; Z98.51 Tubal ligation status
CPT/HCPCS: 73590; 73610; 73630; 99284; L4350